=== PATIENT | female | born 1965 | race Caucasian/White ===

== ENCOUNTER → 2018-12-10 | Outpatient (REF) | payer MEDICARE, OTHER ==
[2018-12-10 16:16] LABS: BASO % 0.5 % (0.0-1.0); EOS % 0.7 % (0.0-3.0); HEMATOCRIT 45.3 % (36.0-47.0); HEMOGLOBIN 15.1 g/dl (12.0-15.5); LYMPH # 1.1 10^3/uL (1.5-4.5); LYMPH % 26.8 % (24.0-44.0); MEAN CORPUSCULAR HEMOGLOBIN 33.5 pg (27.0-33.0); MEAN CORPUSCULAR HGB CONC 33.3 g/dl (32.0-36.5); MEAN CORPUSCULAR VOLUME 100.4 fl (80.0-96.0); MONO # 0.7 10^3/uL (0.0-0.8); MONO % 17.3 % (0.0-5.0); NEUTROPHILS # 2.2 10^3/uL (1.8-7.7); NEUTROPHILS % 54.5 % (36.0-66.0); PLATELET COUNT, AUTOMATED 208 10^3/uL (150-450); RED BLOOD COUNT 4.51 10^6/uL (4.00-5.40); WHITE BLOOD COUNT 4.1 10^3/uL (4.0-10.0)
[2018-12-10 16:21] LABS: ALBUMIN 4.3 GM/DL (3.2-5.2); ALT/SGPT 27 U/L (12-78); BILIRUBIN,TOTAL 0.6 MG/DL (0.2-1.0); BLOOD UREA NITROGEN 7 MG/DL (7-18); CALCIUM LEVEL 9.4 MG/DL (8.5-10.1); CARBON DIOXIDE LEVEL 27 MEQ/L (21-32); CHLORIDE LEVEL 108 MEQ/L (98-107); CREATININE FOR GFR 0.78 MG/DL (0.55-1.30); FREE T4 0.85 NG/DL (0.76-1.46); GLOMERULAR FILTRATION RATE > 60.0 (>51); GLUCOSE, FASTING 85 MG/DL (70-100); POTASSIUM SERUM 3.5 MEQ/L (3.5-5.1); SODIUM LEVEL 143 MEQ/L (136-145); THYROID STIMULATING HORMONE 0.726 uIU/ML (0.358-3.740); TOTAL PROTEIN 7.8 GM/DL (6.4-8.2)
[2018-12-10 16:22] LABS: HEPATITIS B SURFACE ANTIBODY NEGATIVE (POSITIVE); VITAMIN B12 LEVEL 544 PG/ML
[2018-12-10 16:23] LABS: FOLATE > 24.0 NG/ML
[2018-12-10 17:02] LABS: HEPATITIS B CORE ANTIBODY IGM NEGATIVE (NEGATIVE)
[2018-12-17 08:07] LABS: VITAMIN B1 LEVEL WHOLE BLOOD 96.8 nmol/L (66.5-200.0); VITAMIN B6,PYRIDOXAL PHOSPHATE 7.7 ug/L (2.0-32.8); VITAMIN E(ALPHA TOCOPHEROL) 8.9 mg/L (7.0-25.1); VITAMIN E(GAMMA TOCOPHEROL) 1.9 mg/L (0.5-5.5)
== END ==
LOC: M LABDRAWP 15:35
PROVIDERS: ATTEND Psychiatry & Neurology Neurology
DX: G35 Multiple sclerosis (principal); E07.9 Disorder of thyroid, unspecified

== ENCOUNTER 2019-02-23 08:11 | Outpatient (CLI) | payer MEDICARE, OTHER ==
[~2019-02-23] VITALS: Ht 170.2 cm; Wt 68.2 kg
[2019-02-23] VITALS (8 sets, daily range): BP systolic 107–138; BP diastolic 59–91
[2019-02-23] MEDS ORDERED: 0.22 MICRON FILTER (METHACHOLINE/OCREVUS) XX ONE (08:45)
[2019-02-23] MEDS ORDERED: LEXA1TAB PO (09:00)
[2019-02-23] MEDS ORDERED: FOLI400T PO (09:00)
[2019-02-23] MEDS ORDERED: diphenhydrAMINE 25 MG CAP PO ONE (09:30)
[2019-02-23] MEDS ORDERED: methylPREDNISolone INJ 125 MG/2 ML VIAL (J2930) IV ONE (09:30)
[2019-02-23] MEDS ORDERED: ACETAMINOPHEN TAB 650MG DOSE (2X325MG) PO ONE (09:30)
[2019-02-23] MEDS ORDERED: OCRELIZUMAB 300 MG in NS 250 ML IV ONE (10:00)
== END 2019-02-23 13:00 | disposition home or self-care (01) ==
LOC: M INFU 08:11
PROVIDERS: ATTEND Psychiatry & Neurology Neurology
DX: G35 Multiple sclerosis (principal)
CPT/HCPCS: 96375; 96413; 96415; J2350; J2930

== ENCOUNTER 2019-03-10 08:02 | Outpatient (CLI) | payer MEDICARE, OTHER ==
[~2019-03-10] VITALS: Ht 170.2 cm; Wt 68.2 kg
[~2019-03-10 08:02] MED LIST: FOLI400T PO; LEXA1TAB PO
[2019-03-10 08:15] VITALS: BP 102/56
[2019-03-10] MEDS ORDERED: methylPREDNISolone INJ 125 MG/2 ML VIAL (J2930) IV ONE (09:00)
[2019-03-10] MEDS ORDERED: diphenhydrAMINE 25 MG CAP PO ONE (09:00)
[2019-03-10] MEDS ORDERED: ACETAMINOPHEN TAB 650MG DOSE (2X325MG) PO ONE (09:00)
[2019-03-10] MEDS ORDERED: OCRELIZUMAB 300 MG in NS 250 ML IV ONE (09:00)
[2019-03-10] MEDS ORDERED: 0.22 MICRON FILTER (METHACHOLINE/OCREVUS) XX ONE (09:00)
[2019-03-10] MEDS ORDERED: OCRE300I IV (09:05)
[2019-03-10 09:45] VITALS: BP 106/67
[2019-03-10 10:15] VITALS: BP 113/59
[2019-03-10 10:41] VITALS: BP 111/61
[2019-03-10 11:15] VITALS: BP 104/61
[2019-03-10 12:15] VITALS: BP 100/66
== END 2019-03-10 12:15 | disposition home or self-care (01) ==
LOC: M INFU 08:02
PROVIDERS: ATTEND Psychiatry & Neurology Neurology
DX: G35 Multiple sclerosis (principal)
CPT/HCPCS: 96375; 96413; 96415; J2350; J2930

== ENCOUNTER → 2019-03-24 | Outpatient (REF) | payer MEDICARE, OTHER ==
[~2019-03-24] MED LIST changes: +OCRE300I IV
[2019-03-24 14:17] LABS: BASO # 0.1 10^3/uL (0.0-0.2); EOS # 0.1 10^3/uL (0.0-0.5); EOS % 1.7 % (0.0-3.0); HEMATOCRIT 45.5 % (36.0-47.0); LYMPH # 1.1 10^3/uL (1.5-5.0); LYMPH % 20.7 % (24.0-44.0); MONO # 0.7 10^3/uL (0.0-0.8); MONO % 13.4 % (0.0-5.0); NEUTROPHILS # 3.3 10^3/uL (1.5-8.5); PLATELET COUNT, AUTOMATED 190 10^3/uL (150-450); RED BLOOD COUNT 4.55 10^6/uL (4.00-5.40); WHITE BLOOD COUNT 5.2 10^3/uL (4.0-10.0)
[2019-03-24 14:28] LABS: ALBUMIN 3.9 GM/DL (3.2-5.2); ALT/SGPT 93 U/L (12-78); BILIRUBIN,TOTAL 0.7 MG/DL (0.2-1.0); BLOOD UREA NITROGEN 7 MG/DL (7-18); CALCIUM LEVEL 9.4 MG/DL (8.5-10.1); CARBON DIOXIDE LEVEL 26 MEQ/L (21-32); CHLORIDE LEVEL 109 MEQ/L (98-107); CREATININE FOR GFR 0.82 MG/DL (0.55-1.30); GLOMERULAR FILTRATION RATE > 60.0 (>51); GLUCOSE, FASTING 79 MG/DL (70-100); POTASSIUM SERUM 4.2 MEQ/L (3.5-5.1); SODIUM LEVEL 143 MEQ/L (136-145); TOTAL PROTEIN 7.2 GM/DL (6.4-8.2)
== END ==
LOC: M LABNEURO 15:07
PROVIDERS: ATTEND Psychiatry & Neurology Neurology
DX: G35 Multiple sclerosis (principal)

== ENCOUNTER 2019-09-10 08:53 | Outpatient (CLI) | payer MEDICARE, BC ==
[~2019-09-10] VITALS: Ht 170.2 cm; Wt 68.2 kg
[2019-09-10] VITALS (9 sets, daily range): BP systolic 103–121; BP diastolic 59–82
[2019-09-10] MEDS ORDERED: OCRELIZUMAB 600 MG in NS 500 ML IV ONE (09:00)
[2019-09-10] MEDS ORDERED: ACETAMINOPHEN TAB 650MG DOSE (2X325MG) PO ONE (09:00)
[2019-09-10] MEDS ORDERED: methylPREDNISolone INJ 125 MG/2 ML VIAL (J2930) IV ONE (09:00)
[2019-09-10] MEDS ORDERED: diphenhydrAMINE 25 MG CAP PO ONE (09:00)
== END 2019-09-10 15:30 | disposition home or self-care (01) ==
LOC: M INFU 08:53
PROVIDERS: ATTEND Psychiatry & Neurology Neurology
DX: G35 Multiple sclerosis (principal)
CPT/HCPCS: 96365; 96366; 96375; J2350; J2930

== ENCOUNTER 2020-03-08 08:23 | Outpatient (CLI) | payer MEDICARE, BC ==
[2020-03-08] VITALS (7 sets, daily range): BP systolic 99–112; BP diastolic 58–63
[2020-03-08] MEDS ORDERED: diphenhydrAMINE 25MG CAP PO ONE (08:30)
[2020-03-08] MEDS ORDERED: OCRELIZUMAB 600 MG in NS 500 ML IV ONE (08:30)
[2020-03-08] MEDS ORDERED: methylPREDNISolone 125MG 2ML VIAL IV ONE (08:30)
[2020-03-08] MEDS ORDERED: ACETAMINOPHEN TAB 650MG DOSE (2X325MG) PO ONE (08:30)
[2020-03-08] MEDS ORDERED: methylPREDNISolone 125MG 2ML VIAL As Ordered ONE (08:39)
[2020-03-08] MEDS ORDERED: diphenhydrAMINE 25MG CAP As Ordered ONE (08:39)
[2020-03-08] MEDS ORDERED: ACETAMINOPHEN TAB 650MG DOSE (2X325MG) As Ordered ONE (08:39)
== END 2020-03-08 13:11 | disposition home or self-care (01) ==
LOC: M INFU 08:23
PROVIDERS: ATTEND Psychiatry & Neurology Neurology
DX: G35 Multiple sclerosis (principal)
CPT/HCPCS: 96375; 96413; 96415; J2350; J2930

== ENCOUNTER 2020-09-05 07:37 | Outpatient (CLI) | payer MEDICARE, BC ==
[2020-09-05] VITALS (9 sets, daily range): BP systolic 98–108; BP diastolic 52–63
[~2020-09-05] VITALS: Ht 172.7 cm; Wt 72.7 kg
[2020-09-05] MEDS ORDERED: methylPREDNISolone 125MG 2ML VIAL IV ONE (08:00)
[2020-09-05] MEDS ORDERED: diphenhydrAMINE 25MG CAP PO ONE (08:00)
[2020-09-05] MEDS ORDERED: ACETAMINOPHEN TAB 650MG DOSE (2X325MG) PO ONE (08:00)
[2020-09-05] MEDS ORDERED: OCRELIZUMAB 600 MG in NS 500 ML IV ONE (08:00)
== END 2020-09-05 13:00 | disposition home or self-care (01) ==
LOC: M INFU 07:37
PROVIDERS: ATTEND Psychiatry & Neurology Neurology
DX: G35 Multiple sclerosis (principal)
CPT/HCPCS: 96365; 96366; 96375; J2350; J2930

== ENCOUNTER → 2020-11-21 | Outpatient (CLI) | payer MEDICARE, BC ==
[~2020-11-21] MED LIST changes: -FOLI400T PO; +FOLI400T13 PO
[2020-11-21 14:16] LABS: BASO # 0.1 10^3/uL (0.0-0.2); BASO % 1.1 % (0.0-1.0); EOS # 0.2 10^3/uL (0.0-0.5); EOS % 3.6 % (0.0-3.0); HEMATOCRIT 42.8 % (36.0-47.0); HEMOGLOBIN 13.3 g/dl (12.0-15.5); LYMPH # 1.6 10^3/uL (1.5-5.0); LYMPH % 28.8 % (24.0-44.0); MEAN CORPUSCULAR HEMOGLOBIN 29.8 pg (27.0-33.0); MEAN CORPUSCULAR HGB CONC 31.1 g/dl (32.0-36.5); MONO # 0.8 10^3/uL (0.0-0.8); MONO % 14.2 % (2.0-8.0); NEUTROPHILS # 2.9 10^3/uL (1.5-8.5); NEUTROPHILS % 51.9 % (36.0-66.0); PLATELET COUNT, AUTOMATED 285 10^3/uL (150-450); RED BLOOD COUNT 4.46 10^6/uL (4.00-5.40); WHITE BLOOD COUNT 5.6 10^3/uL (4.0-10.0)
[2020-11-21 14:49] LABS: ALBUMIN 4.1 GM/DL (3.2-5.2); ALT/SGPT 18 U/L (12-78); BILIRUBIN,TOTAL 0.5 MG/DL (0.2-1.0); BLOOD UREA NITROGEN 14 MG/DL (7-18); CALCIUM LEVEL 9.5 MG/DL (8.5-10.1); CARBON DIOXIDE LEVEL 29 MEQ/L (21-32); CHLORIDE LEVEL 107 MEQ/L (98-107); CREATININE FOR GFR 0.74 MG/DL (0.55-1.30); GLOMERULAR FILTRATION RATE > 60.0 (>51); GLUCOSE, FASTING 79 MG/DL (70-100); POTASSIUM SERUM 4.2 MEQ/L (3.5-5.1); SODIUM LEVEL 140 MEQ/L (136-145); TOTAL PROTEIN 7.6 GM/DL (6.4-8.2)
[2020-11-21 14:57] LABS: VITAMIN B12 LEVEL 401 PG/ML
[2020-11-21 14:58] LABS: FOLATE > 24.0 NG/ML
== END ==
LOC: M WUC 12:26
PROVIDERS: ATTEND Psychiatry & Neurology Neurology
DX: G35 Multiple sclerosis (principal)

== ENCOUNTER 2021-03-06 07:54 | Outpatient (CLI) | payer MEDICARE, BC ==
[2021-03-06] VITALS (7 sets, daily range): BP systolic 103–130; BP diastolic 58–70
[~2021-03-06] VITALS: Ht 172.7 cm; Wt 72.7 kg
[2021-03-06] MEDS ORDERED: OCRELIZUMAB 600 MG in NS 500 ML IV ONE (08:00)
[2021-03-06] MEDS ORDERED: diphenhydrAMINE 25MG CAP PO ONE (08:00)
[2021-03-06] MEDS ORDERED: ACETAMINOPHEN TAB 650MG DOSE (2X325MG) PO ONE (08:00)
[2021-03-06] MEDS ORDERED: methylPREDNISolone 125MG 2ML VIAL IV ONE (08:00)
== END 2021-03-06 13:20 | disposition home or self-care (01) ==
LOC: M INFU 07:54
PROVIDERS: ATTEND Psychiatry & Neurology Neurology
DX: G35 Multiple sclerosis (principal)
CPT/HCPCS: 96365; 96366; 96375; J2350; J2930

== ENCOUNTER 2021-05-16 14:27 | Outpatient (CLI) | payer MEDICARE, BC ==
[~2021-05-16] VITALS: Ht 172.7 cm; Wt 72.7 kg
[2021-05-16 14:44] VITALS: BP 118/66
[2021-05-16] MEDS ORDERED: methylPREDNISolone 1,000 MG, VIAL MATE ADAPTER 1 EACH in NS 250 ML IV ONE (14:45)
[2021-05-16 16:10] VITALS: BP 112/63
== END 2021-05-16 16:10 | disposition home or self-care (01) ==
LOC: M INFU 14:27
PROVIDERS: ATTEND Psychiatry & Neurology Neurology
DX: G35 Multiple sclerosis (principal)
CPT/HCPCS: 96365; J2930

== ENCOUNTER 2021-05-17 15:14 | Outpatient (CLI) | payer MEDICARE, BC ==
[~2021-05-17] VITALS: Ht 172.7 cm; Wt 70.5 kg
[2021-05-17 15:15] VITALS: BP 117/56
[2021-05-17] MEDS ORDERED: methylPREDNISolone 1,000 MG, VIAL MATE ADAPTER 1 EACH in NS 250 ML IV ONE (15:30)
[2021-05-17 16:45] VITALS: BP 104/59
== END 2021-05-17 16:45 | disposition home or self-care (01) ==
LOC: M INFU 15:14
PROVIDERS: ATTEND Psychiatry & Neurology Neurology
DX: G35 Multiple sclerosis (principal)
CPT/HCPCS: 96365; J2930

== ENCOUNTER 2021-05-18 14:39 | Outpatient (CLI) | payer MEDICARE, BC ==
[~2021-05-18] VITALS: Ht 172.7 cm; Wt 70.5 kg
[2021-05-18] MEDS ORDERED: methylPREDNISolone 1,000 MG, VIAL MATE ADAPTER 1 EACH in NS 250 ML IV ONE (15:00)
[2021-05-18 15:03] VITALS: BP 108/53
[2021-05-18 16:08] VITALS: BP 119/59
== END 2021-05-18 16:10 | disposition home or self-care (01) ==
LOC: M INFU 14:39
PROVIDERS: ATTEND Psychiatry & Neurology Neurology
DX: G35 Multiple sclerosis (principal)
CPT/HCPCS: 96365; J2930

== ENCOUNTER 2021-05-19 14:47 | Outpatient (CLI) | payer MEDICARE, BC ==
[2021-05-19] MEDS ORDERED: methylPREDNISolone 1,000 MG, VIAL MATE ADAPTER 1 EACH in NS 250 ML IV ONE (15:00)
[2021-05-19 15:05] VITALS: BP 118/56
[2021-05-19 16:10] VITALS: BP 122/59
== END 2021-05-19 16:10 | disposition home or self-care (01) ==
LOC: M INFU 14:47
PROVIDERS: ATTEND Psychiatry & Neurology Neurology
DX: G35 Multiple sclerosis (principal)
CPT/HCPCS: 96365; J2930

== ENCOUNTER 2021-05-20 06:29 | Outpatient (CLI) | payer MEDICARE, BC ==
[~2021-05-20] VITALS: Ht 172.7 cm; Wt 70.5 kg
[2021-05-20] MEDS ORDERED: methylPREDNISolone 1,000 MG, VIAL MATE ADAPTER 1 EACH in NS 250 ML IV ONE (11:45)
[2021-05-20 11:55] VITALS: BP 125/58
[2021-05-20 13:10] VITALS: BP 122/64
== END 2021-05-20 13:10 | disposition home or self-care (01) ==
LOC: M INFU 06:29
PROVIDERS: ATTEND Psychiatry & Neurology Neurology
DX: G35 Multiple sclerosis (principal)
CPT/HCPCS: 96365; J2930

== ENCOUNTER → 2021-10-24 | Outpatient (CLI) | payer MEDICARE, BC ==
[2021-10-24 14:20] LABS: RHEUMATOID FACTOR QUANT < 10.0 IU/ML (<15.0); TOTAL PROTEIN 7.1 GM/DL (6.4-8.2)
[2021-10-24 14:24] LABS: VITAMIN B12 LEVEL 684 PG/ML
[2021-10-24 14:25] LABS: FOLATE > 24.0 NG/ML
[2021-10-25 14:47] LABS: ALBUMIN % 60.6 % (55.8-66.1); ALPHA-1-GLOBULIN % 3.8 % (2.9-4.9); ALPHA-1-GLOBULINS 0.27 GM/DL (0.17-0.41); ALPHA-2-GLOBULINS % 9.9 % (7.1-11.8); BETA-1-GLOBULINS 0.47 GM/DL (0.28-0.60); BETA-1-GLOBULINS % 6.6 % (4.7-7.2); BETA-2-GLOBULINS 0.27 GM/DL (0.19-0.55); BETA-2-GLOBULINS % 3.8 % (3.2-6.5); GAMMA GLOBULIN % 15.3 % (11.1-18.8); GAMMA GLOBULINS 1.09 GM/DL (0.65-1.58)
== END ==
LOC: M WUC 11:07
PROVIDERS: ATTEND Psychiatry & Neurology Neurology
DX: G35 Multiple sclerosis (principal); R26.81 Unsteadiness on feet

== ENCOUNTER 2022-03-06 07:49 | Outpatient (CLI) | payer MEDICARE, BC ==
[~2022-03-06] VITALS: Ht 172.7 cm; Wt 70.0 kg
[2022-03-06 07:58] VITALS: BP 111/60
[2022-03-06] MEDS ORDERED: OCRELIZUMAB 600 MG in NS 500 ML IV ONE (08:00)
[2022-03-06] MEDS ORDERED: methylPREDNISolone 125MG 2ML VIAL IV ONE (08:00)
[2022-03-06] MEDS ORDERED: ACETAMINOPHEN TAB 650MG DOSE (2X325MG) PO ONE (08:00)
[2022-03-06] MEDS ORDERED: diphenhydrAMINE 25MG CAP PO ONE (08:00)
[2022-03-06 09:30] VITALS: BP 106/67
[2022-03-06 12:33] VITALS: BP 109/59
== END 2022-03-06 12:20 | disposition home or self-care (01) ==
LOC: M INFU 07:49
PROVIDERS: ATTEND Psychiatry & Neurology Neurology
DX: G35 Multiple sclerosis (principal)
CPT/HCPCS: 96365; 96366; 96375; J2350; J2930

== ENCOUNTER 2022-09-06 07:36 | Outpatient (CLI) | payer MEDICARE, BC ==
[~2022-09-06] VITALS: Ht 172.7 cm; Wt 70.0 kg
[2022-09-06] MEDS ORDERED: OCRELIZUMAB 600 MG in NS 500 ML IV ONE (08:00)
[2022-09-06] MEDS ORDERED: diphenhydrAMINE 25MG CAP PO ONE (08:00)
[2022-09-06] MEDS ORDERED: ACETAMINOPHEN TAB 650MG DOSE (2X325MG) PO ONE (08:00)
[2022-09-06] MEDS ORDERED: methylPREDNISolone 125MG 2ML VIAL IV ONE (08:00)
[2022-09-06 08:01] VITALS: BP 111/76
[2022-09-06 09:00] VITALS: BP 103/57
[2022-09-06 09:30] VITALS: BP 97/58
[2022-09-06 10:00] VITALS: BP 100/56
[2022-09-06 10:30] VITALS: BP 105/55
== END 2022-09-06 12:20 | disposition home or self-care (01) ==
LOC: M INFU 07:36
PROVIDERS: ATTEND Psychiatry & Neurology Neurology
DX: G35 Multiple sclerosis (principal)
CPT/HCPCS: 96365; 96366; 96375; J2350; J2930

== ENCOUNTER → 2022-10-29 | Outpatient (CLI) | payer MEDICARE, BC ==
[2022-10-29 17:56] LABS: BASO # 0.1 10^3/uL (0.0-0.2); BASO % 0.9 % (0.0-1.0); EOS # 0.1 10^3/uL (0.0-0.5); EOS % 1.7 % (0.0-3.0); HEMATOCRIT 47.8 % (36.0-47.0); HEMOGLOBIN 15.7 g/dl (12.0-15.5); LYMPH # 1.7 10^3/uL (1.5-5.0); LYMPH % 28.1 % (24.0-44.0); MEAN CORPUSCULAR HEMOGLOBIN 31.9 pg (27.0-33.0); MEAN CORPUSCULAR HGB CONC 32.8 g/dl (32.0-36.5); MEAN CORPUSCULAR VOLUME 97.2 fl (80.0-96.0); MONO # 0.7 10^3/uL (0.0-0.8); MONO % 12.1 % (2.0-8.0); NEUTROPHILS # 3.4 10^3/uL (1.5-8.5); PLATELET COUNT, AUTOMATED 198 10^3/uL (150-450); RED BLOOD COUNT 4.92 10^6/uL (4.00-5.40); WHITE BLOOD COUNT 5.9 10^3/uL (4.0-10.0)
[2022-10-29 18:24] LABS: ALBUMIN 4.3 G/DL (3.2-5.2); ALKALINE PHOSPHATASE 67 U/L (46-116); ALT/SGPT 35 U/L (7.0-40); AST/SGOT 28 U/L (<34); BILIRUBIN,TOTAL 0.5 MG/DL (0.3-1.2); BLOOD UREA NITROGEN 16 MG/DL (9-23); CALCIUM LEVEL 9.8 MG/DL (8.5-10.1); CARBON DIOXIDE LEVEL 27 MMOL/L (20-31); CHLORIDE LEVEL 106 MMOL/L (98-107); CREATININE FOR GFR 0.88 MG/DL (0.55-1.30); GLOMERULAR FILTRATION RATE > 60.0 (>51); GLUCOSE, FASTING 89 MG/DL (60-100); POTASSIUM SERUM 4.3 MMOL/L (3.5-5.1); SODIUM LEVEL 141 MMOL/L (136-145); TOTAL PROTEIN 7.5 G/DL (5.7-8.2)
== END ==
LOC: M WUC 11:34
PROVIDERS: ATTEND Psychiatry & Neurology Neurology
DX: G35 Multiple sclerosis (principal)

== ENCOUNTER 2023-03-06 07:55 | Outpatient (CLI) | payer BC, MEDICARE ==
[~2023-03-06] VITALS: Ht 172.7 cm; Wt 68.0 kg
[2023-03-06] VITALS (7 sets, daily range): BP systolic 110–126; BP diastolic 2–69; TEMP 37; O2SAT 96–97
[2023-03-06] MEDS ORDERED: methylPREDNISolone 125MG 2ML VIAL IV ONE (08:25)
[2023-03-06] MEDS ORDERED: ACETAMINOPHEN TAB 650MG DOSE (2X325MG) PO ONE (08:25)
[2023-03-06] MEDS ORDERED: diphenhydrAMINE 25MG CAP PO ONE (08:25)
[2023-03-06] MEDS ORDERED: OCRELIZUMAB 600 MG in NS 500 ML IV ONE (08:30)
== END 2023-03-06 13:00 ==
LOC: M INFU 07:55
PROVIDERS: ATTEND Psychiatry & Neurology Neurology
DX: G35 Multiple sclerosis (principal)
CPT/HCPCS: 96365; 96366; 96375; J2350; J2930

== ENCOUNTER 2023-09-06 08:25 | Outpatient (CLI) | payer MEDICARE, BC ==
[~2023-09-06] VITALS: Ht 172.7 cm; Wt 70.5 kg
[2023-09-06] VITALS (7 sets, daily range): BP systolic 114–125; BP diastolic 58–77; O2SAT 96–100
[2023-09-06] MEDS: ACETAMINOPHEN TAB 650MG DOSE (2X325MG) PO ONE (08:33)
[2023-09-06] MEDS: methylPREDNISolone 125MG 2ML VIAL IV ONE (08:33)
[2023-09-06] MEDS: diphenhydrAMINE 25MG CAP PO ONE (08:33)
[2023-09-06] MEDS: OCRELIZUMAB 600 MG in NS 500 ML IV ONE (09:10)
== END 2023-09-06 13:10 ==
LOC: M INFU 08:25
PROVIDERS: ATTEND Psychiatry & Neurology Neurology
DX: G35 Multiple sclerosis (principal)
CPT/HCPCS: 96365; 96366; J2350; J2930

== ENCOUNTER 2024-03-06 08:32 | Outpatient (CLI) | payer MEDICARE, BC ==
[2024-03-06] VITALS (7 sets, daily range): BP systolic 97–110; BP diastolic 51–69; TEMP 36.3; O2SAT 95–100
[~2024-03-06] VITALS: Ht 170.2 cm; Wt 68.1 kg
[2024-03-06] MEDS: diphenhydrAMINE 25MG CAP PO ONE (09:06)
[2024-03-06] MEDS: ACETAMINOPHEN TAB 650MG DOSE (2X325MG) PO ONE (09:06)
[2024-03-06] MEDS: methylPREDNISolone 125MG 2ML VIAL IV ONE (09:06)
[2024-03-06] MEDS: OCRELIZUMAB 600 MG in NS 500 ML IV ONE (09:32)
== END 2024-03-06 13:30 ==
LOC: M INFU 08:32
PROVIDERS: ATTEND Psychiatry & Neurology Neurology
DX: G35 Multiple sclerosis (principal)
CPT/HCPCS: 96365; 96366; 96375; J2350; J2919

== ENCOUNTER → 2024-07-22 | Outpatient (REF) | payer MEDICARE ==
[2024-07-22 18:33] LABS: BASO # 0.1 10^3/uL (0.0-0.2); BASO % 0.8 % (0.0-1.0); EOS # 0.1 10^3/uL (0.0-0.5); EOS % 1.2 % (0.0-3.0); HEMATOCRIT 45.6 % (36.0-47.0); HEMOGLOBIN 14.5 g/dl (12.0-15.5); LYMPH # 1.5 10^3/uL (1.5-5.0); LYMPH % 23.3 % (24.0-44.0); MEAN CORPUSCULAR HEMOGLOBIN 30.6 pg (27.0-33.0); MEAN CORPUSCULAR HGB CONC 31.8 g/dl (32.0-36.5); MEAN CORPUSCULAR VOLUME 96.2 fl (80.0-96.0); MONO # 1.1 10^3/uL (0.0-0.8); MONO % 16.4 % (2.0-8.0); NEUTROPHILS # 3.8 10^3/uL (1.5-8.5); NEUTROPHILS % 58.1 % (36.0-66.0); PLATELET COUNT, AUTOMATED 238 10^3/uL (150-450); RED BLOOD COUNT 4.74 10^6/uL (4.00-5.40); WHITE BLOOD COUNT 6.6 10^3/uL (4.0-10.0)
[2024-07-22 19:06] LABS: ALBUMIN 3.9 G/DL (3.2-5.2); ALKALINE PHOSPHATASE 67 U/L (35-104); ALT/SGPT 23 U/L (7.0-40); AST/SGOT 19 U/L (<34); BILIRUBIN,TOTAL 0.3 MG/DL (0.3-1.2); BLOOD UREA NITROGEN 12 MG/DL (9-23); CALCIUM LEVEL 10.1 MG/DL (8.5-10.1); CARBON DIOXIDE LEVEL 27 MMOL/L (20-31); CHLORIDE LEVEL 110 MMOL/L (98-107); CREATININE FOR GFR 0.84 MG/DL (0.55-1.30); GLOMERULAR FILTRATION RATE > 60.0 (>51); GLUCOSE, FASTING 90 MG/DL (60-100); POTASSIUM SERUM 4.3 MMOL/L (3.5-5.1); SODIUM LEVEL 144 MMOL/L (136-145); TOTAL PROTEIN 7.6 G/DL (5.7-8.2)
== END ==
LOC: M LABWUC 16:13
PROVIDERS: ATTEND Psychiatry & Neurology Neurology
DX: G35 Multiple sclerosis (principal)

== ENCOUNTER 2024-09-07 09:01 | Outpatient (CLI) | payer MEDICARE ==
[~2024-09-07] VITALS: Ht 172.7 cm; Wt 68.1 kg
[2024-09-07 09:10] VITALS: BP 108/70; O2SAT 97
[2024-09-07] MEDS: diphenhydrAMINE 25MG CAP PO ONE (09:25)
[2024-09-07] MEDS: ACETAMINOPHEN 325 MG TAB PO ONE (09:25)
[2024-09-07] MEDS: methylPREDNISolone 125MG 2ML VIAL IV ONE (09:25)
[2024-09-07] MEDS: OCRELIZUMAB 600 MG in NS 500 ML IV ONE (09:53)
[2024-09-07 10:30] VITALS: BP 100/58; O2SAT 96
[2024-09-07 11:00] VITALS: BP 119/61; O2SAT 96
[2024-09-07 11:30] VITALS: BP 96/57; O2SAT 96
[2024-09-07 12:00] VITALS: BP 101/59; O2SAT 97
[2024-09-07 13:41] VITALS: BP 108/66; O2SAT 95
== END 2024-09-07 13:55 ==
LOC: M INFU 09:01
PROVIDERS: ATTEND Psychiatry & Neurology Neurology
DX: G35 Multiple sclerosis (principal)
CPT/HCPCS: 96365; 96366; 96375; J2350; J2919

== ENCOUNTER 2025-03-19 11:06 | Outpatient (CLI) | payer MEDICARE, BC ==
[~2025-03-19] VITALS: Ht 172.7 cm; Wt 68.2 kg
[2025-03-19 11:00] VITALS: BP 99/57; O2SAT 95
[2025-03-19] MEDS: ACETAMINOPHEN 325 MG TAB PO ONE (11:21)
[2025-03-19] MEDS: OCRELIZUMAB 600 MG in NS 500 ML IV ONE (12:13)
[2025-03-19 12:30] VITALS: BP 130/84; O2SAT 99
[2025-03-19 13:00] VITALS: BP 122/81; O2SAT 99
[2025-03-19 13:30] VITALS: BP 105/60; O2SAT 96
[2025-03-19 14:00] VITALS: BP 108/61; O2SAT 96
[2025-03-19 16:10] VITALS: BP 120/69; O2SAT 95
== END 2025-03-19 16:10 | disposition home or self-care (01) ==
LOC: M INFU 11:06
PROVIDERS: ATTEND Psychiatry & Neurology Neurology
DX: G35 Multiple sclerosis (principal)
CPT/HCPCS: 96365; 96366; J2350; J2919

== ENCOUNTER → 2025-06-30 | Outpatient (CLI) | payer MEDICARE, BC ==
[2025-06-30 15:50] LABS: BASO # 0.0 10^3/uL (0.0-0.2); BASO % 0.5 % (0.0-1.0); EOS # 0.1 10^3/uL (0.0-0.5); EOS % 0.8 % (0.0-3.0); LYMPH # 1.5 10^3/uL (1.5-5.0); LYMPH % 20.8 % (24.0-44.0); MONO # 0.8 10^3/uL (0.0-0.8); MONO % 10.5 % (2.0-8.0); NEUTROPHILS # 4.9 10^3/uL (1.5-8.5); NEUTROPHILS % 67.1 % (36.0-66.0); PLATELET COUNT, AUTOMATED 240 10^3/uL (150-450)
[2025-06-30 16:12] LABS: RHEUMATOID FACTOR QUANT 6.5 IU/ML (<14)
[2025-06-30 16:13] LABS: ALT/SGPT 28.0 U/L (7.0-40); AST/SGOT 25.0 U/L (<34); CALCIUM LEVEL 9.0 MG/DL (8.5-10.1); CARBON DIOXIDE LEVEL 28.0 MMOL/L (20-31); CHLORIDE LEVEL 103.0 MMOL/L (98-107); CREATININE FOR GFR 0.8 MG/DL (0.55-1.30); GLOMERULAR FILTRATION RATE 84.8 (>51); POTASSIUM SERUM 3.7 MMOL/L (3.5-5.1); SODIUM LEVEL 142.0 MMOL/L (136-145)
[2025-06-30 16:16] LABS: VITAMIN B12 LEVEL 524.0 PG/ML (211-911)
== END ==
LOC: M WUC 12:33
PROVIDERS: ATTEND Psychiatry & Neurology Neurology
DX: G35.D Multiple sclerosis, unspecified (principal); Z79.899 Other long term (current) drug therapy